=== PATIENT | female | born 1995 | race Caucasian/White ===

== ENCOUNTER 2018-04-08 17:29 | Emergency (ER) | payer OTHER ==
[2018-04-08 17:59] VITALS: BP 114/49
--- NOTE | 2018-04-08 18:20 | UC ---
Hand/Wrist HPI - HPI Summary HPI Summary: The patient is a 23-year-old female who is 8 weeks . She jammed her right thumb yesterday. Unable to use it due to pain she is right handed she declines XRs since she is early in her and we will respect that decision she is aware she would be shielded with a lead apron - History Of Current Complaint Chief Complaint: UCUpperExtremity Stated Complaint: RIGHT HAND INJURY Time Seen by Provider: 04/08/18 18:11 Hx Obtained From: Patient Hx Last Menstrual Period: 02/20/18 Onset/Duration: Sudden Onset Severity Initially: Moderate Severity Currently: Moderate Pain Intensity: 7 Pain Scale Used: 0-10 Numeric Character Of Pain: Aching, Throbbing Aggravating Factor(s): Movement, Lifting Alleviating Factor(s): OTC Meds Associated Signs And Symptoms: Positive: Swelling Related History: Dominant Hand Right - Allergies/Home Medications Allergies/Adverse Reactions: Allergies Allergy/AdvReac Type Severity Reaction Status Date / Time No Known Allergies Allergy Verified 04/08/18 18:00 Home Medications: Home Medications Acetaminophen [Tylenol Extra Strength] 500 mg PO DAILY 04/08/18 [History Confirmed 04/08/18] PMH/Surg Hx/FS Hx/Imm Hx Previously Healthy: Yes - Surgical History Surgical History: Yes Surgery Procedure, Year, and Place: App 04/2015 - Family History Known Family History: Positive: Hypertension - Social History Alcohol Use: None Substance Use Type: None Smoking Status (MU): Light Every Day Tobacco Smoker - Immunization History Vaccination Up to Date: Yes Review of Systems Constitutional: Negative Skin: Negative Eyes: Negative ENT: Negative Respiratory: Negative Cardiovascular: Negative Gastrointestinal: Negative Genitourinary: Negative Motor: Negative Neurovascular: Negative Musculoskeletal: Arthralgia Neurological: Negative Psychological: Negative Is Patient Immunocompromised?: No All Other Systems Reviewed And Are Negative: Yes Physical Exam Triage Information Reviewed: Yes Appearance: Well-Appearing, No Pain Distress, Well-Nourished Vital Signs: Initial Vital Signs Temp 99.4 F 04/08/18 17:54 Pulse 71 04/08/18 17:54 Resp 16 04/08/18 17:54 BP 114/49 04/08/18 17:54 Pulse Ox 100 04/08/18 17:54 Vital Signs Reviewed: Yes Eyes: Positive: Conjunctiva Clear ENT: Positive: Hearing grossly normal. Negative: Nasal congestion, Nasal drainage, Trismus, Muffled voice, Hoarse voice Neck: Positive: Supple Respiratory: Positive: Lungs clear, Normal breath sounds, No respiratory distress, No accessory muscle use Cardiovascular: Positive: RRR, No Murmur Musculoskeletal: Positive: ROM Limited @ - right thumb, Edema @ - see image Neurological: Positive: Alert Psychological Exam: Normal Skin Exam: Normal Hand/Wrist Course/Dx - Differential Dx/Diagnosis Provider Diagnoses: Right thumb sprain. can not rule out fracture or complete ligament tear Discharge - Sign-Out/Discharge Documenting (check all that apply): Patient Departure - Discharge Plan Condition: Stable Disposition: HOME Patient Education Materials: Finger Sprain (ED) Forms: *Work Release Referrals: Roberto Angelo MD [Medical Doctor] - 1 Week (recheck in about a week if not better) Additional Instructions: thumb spica splint elevate ice tylenol We have held off on doing XRs on your thumb due to concerns re. your early If it is a simple sprain it should be better over about a week If not better you may have completely torn a ligament or sustained a chip fracture If not better in a week see the orthopedist If you have not yet started to I suggest you take a daily vit with folate (folic acid) - Billing Disposition and Condition Condition: STABLE Disposition: Home Images Hands: 1 - tender/swollen radial aspect of MP joint
== END 2018-04-08 18:31 | disposition home or self-care (01) ==
LOC: UCCORT 17:29
DX: O26.891 Other specified pregnancy related conditions, first trimester (principal); Z3A.08 8 weeks gestation of pregnancy; S63.601A Unspecified sprain of right thumb, initial encounter; W22.8XXA Striking against or struck by other objects, initial encounter; Y93.9 Activity, unspecified; Y92.9 Unspecified place or not applicable; O99.331 Smoking (tobacco) complicating pregnancy, first trimester; F17.210 Nicotine dependence, cigarettes, uncomplicated
CPT/HCPCS: 99212; G0463

== ENCOUNTER 2018-07-05 15:36 | Emergency (ER) | payer OTHER ==
[2018-07-05 16:53] VITALS: BP 111/79
--- NOTE | 2018-07-05 17:18 | UC ---
Abdominal Pain Female HPI - HPI Summary HPI Summary: Pt is 21 weeks . Pt states since mid morning has had lower abdominal cramping. Pt denies vaginal bleeding or LOF. Pt states continues to feel movement. Pt denies n/v/d.no fever, chills. Pt states intermittently thinks urine has "odor" Pt denies frequency. No back pain. Pt called her OB this am - was referred to PCP. Pt had appt with PCP at 11:30am today. Pt states was enroute to office when PCP called and cancelled. Pt called her OB back and was deferred to ED or UC. Pt came here to be checked for UTI. Pt's medications reviewed this visit - History of Current Complaint Chief Complaint: UCGU Stated Complaint: URINARY/21 WEEKS PREG Time Seen by Provider: 07/05/18 16:49 Hx Obtained From: Patient Hx Last Menstrual Period: 02/08/18 ?: Yes - 21 weeks Onset/Duration: Gradual Onset, Lasting Hours Severity Initially: Mild Severity Currently: Mild Pain Intensity: 3 Pain Scale Used: 0-10 Numeric Location: Other - bilateral lower abd Allergies/Adverse Reactions: Allergies Allergy/AdvReac Type Severity Reaction Status Date / Time No Known Allergies Allergy Verified 07/05/18 16:53 Home Medications: Home Medications Vitamin TAB* 2 tab PO DAILY 07/05/18 [History Confirmed 07/05/18] PMH/Surg Hx/FS Hx/Imm Hx Previously Healthy: Yes - Surgical History Surgical History: Yes Surgery Procedure, Year, and Place: [place] 04/2015 - Family History Known Family History: Positive: Hypertension - Social History Lives: With Family Alcohol Use: None Substance Use Type: None Smoking Status (MU): Former Smoker - Immunization History Vaccination Up to Date: Yes Review of Systems All Other Systems Reviewed And Are Negative: Yes Gastrointestinal: Positive: Other - lower abdominal cramping Genitourinary: Positive: Other - intermittnet odor to urine. Negative: Dysuria , Frequency, Urgency Physical Exam - Summary Physical Exam Summary: Vital Signs Reviewed: Yes A+Ox3, no distress Eyes: Conjunctiva Clear ENT: Hearing grossly normal neck: supple Respiratory: Positive: No respiratory distress, No accessory muscle use Cardiovascular: skin color reflect adequate perfusion abd gravid no CVA soft + BS FHT 128 by my doppler Musculoskeletal Exam: SIMS x 4 without difficulty Neurological: Positive: Alert, ambulatory without difficulty Psychological: Positive: Normal Response To Family Skin: Positive: no rash, no ecchymosis Triage Information Reviewed: Yes Vital Signs: Initial Vital Signs Temp 97.8 F 07/05/18 16:41 Pulse 69 07/05/18 16:41 Resp 18 07/05/18 16:41 BP 111/79 07/05/18 16:41 Pulse Ox 100 07/05/18 16:41 Abd Pain Female Course/Dx - Course Course Of Treatment: patient presents with lower abdominal cramping since this morning. Pt is 22 week . Patient reports good movement. no vaginal bleeding or LOF. Pt OB directed her for additional care. urine unremarkable. FHT 128. sending pt to ED for further evaluation. d/w Dr. Barton - aware of pt - Differential Dx/Diagnosis Provider Diagnoses: abdominal pain in Discharge - Sign-Out/Discharge Documenting (check all that apply): Patient Departure All imaging exams completed and their final reports reviewed: No Studies - Discharge Plan Condition: Stable Disposition: HOME-RECOMMEND TO ED Patient Education Materials: Abdominal Pain in (ED) Referrals: Inga Dai [Primary Care Provider] - Additional Instructions: The doctor that evaluated you today thinks that you need additional testing that can be completed the emergency department. It is recommended that you go directly to emergency department for further evaluation. This evaluation may include blood work or imaging. This testing will be directed and decided by the provider that evaluate you at the emergency department. If pain becomes worse, you feel lightheaded, you have uncontrolled vomiting, or you have any other concerns while you are being driven to emergency department as recommended to pullover and contact 911. - Billing Disposition and Condition Condition: STABLE Disposition: Home-Recommend to ED
== END 2018-07-05 17:15 | disposition home health service (06) ==
LOC: UCCORT 15:36
DX: O99.89 Other specified diseases and conditions complicating pregnancy, childbirth and the puerperium (principal); R10.30 Lower abdominal pain, unspecified; R39.89 Other symptoms and signs involving the genitourinary system; Z3A.22 22 weeks gestation of pregnancy; Z87.891 Personal history of nicotine dependence
CPT/HCPCS: 81003; 99212; G0463